=== PATIENT | male | born 2000 | race Caucasian/White ===

== ENCOUNTER 2021-12-09 08:53 | Outpatient (REF) | payer MEDICAID, SELFPAY ==
[2021-12-09 09:29] LABS: COVID-19 Test Negative (Negative)
== END 2021-12-09 08:54 | disposition home or self-care (01) ==
LOC: HO.LAB 08:53
PROVIDERS: Visit Provider Internal Medicine
DX: Z20.822 Contact with and (suspected) exposure to COVID-19 (principal)
CPT/HCPCS: 87635; C9803